=== PATIENT | male | born 1985 | race African-American/Black ===

== ENCOUNTER 2019-01-23 03:39 | Emergency (ER) | payer SELFPAY ==
[~2019-01-23] VITALS: Ht 175.3 cm; Wt 77.1 kg
[2019-01-23 03:42] VITALS: Ht 175.3 cm; Wt 77.1 kg
[2019-01-23 04:05] VITALS: BP 140/101
== END 2019-01-23 04:06 | disposition home or self-care (01) ==
LOC: ED 03:39
DX: Z04.1 Encounter for examination and observation following transport accident (principal)